=== PATIENT | male | born 1975 | race Hispanic/Latino ===

== ENCOUNTER → 2017-05-11 | Day surgery (SDC) | payer OTHER ==
[~2017-05-11] VITALS: Ht 182.9 cm; Wt 168.7 kg
[~2017-05-11] MED LIST: DAILY MULTIPLE1 EACH PO; MOBIC15 M1 PO; NAPROXEN500 MG PO; PANTOPRAZOLE SO40 M1 PO; PERCOCET 5-3251 EACH PO; RANITIDINE15 MG/M1 PO; TERBINAFINE HY250 MG PO; VITAMIN B-121000 MC3 PO; [UNRECOGNIZED DRUG - OTHER] PO
--- NOTE | 2017-05-11 13:55 | Operative Report ---
Operative/Inv Procedure Report Surgery Date: 05/11/17 Name of Procedure: Cystoscopy, L ureteroscopy, laser lithotripsy, basketing of stone fragments, insertion of L double J ureteral stent Pre-Operative Diagnosis: L renal caluculus Post-Operative Diagnosis: same Estimated Blood Loss: scant Surgeon/Face Boss: Arnulfo Castelan MD Anesthesia: laryngeal mask airway Drains: 28 cm, 6 fr L double J ureteral stent Specimens: L renal stone fragments, urine C&S Complications: none Condition: stable Operative Indication: L flank pain and L mid to upper pole calyceal stone Operative/Procedure Note Note: The patient was taken to the cystoscopy room identified. He is placed in supine position on the cystoscopy table. A timeout was executed appropriately with the patient awake. Gen. anesthesia was induced via LMA. He was then placed in dorsolithotomy position and prepped and draped in usual fashion for cystoscopy. Surgical pause was executed appropriately. Fluoroscopy images taken with a marker on the left side of the abdomen to confirm the correct side of surgery as well as a correct orientation of the fluoroscopy image. A 22 [place] cystoscope sheath was placed into the bladder under direct vision using the 30 lens. Anterior urethra was normal. Prostatic urethra was nonobstructing. Upon entering the bladder cystoscopy was performed. The bladder was essentially normal. The right and left ureteral orifices were normal in location and appearance. A guidewire was placed through the cystoscope into the left ureter and advanced up the level of the left kidney. The cystoscope was removed leaving the wire in place. Double-lumen dilating catheter was used to place a second wire. Over the second wire was placed a 45 cm ureteral access sheath. The safety wire remained in place at all times. The flexible ureteroscope was advanced through the ureteral access sheath. The stone was located in the mid to upper pole calyx. Using the 275 holmium laser fiber the stone was fragmented into multiple fragments. Using a spiral basket some of the fragments were removed. Some of them could not be basketed and removed. This was due to on some difficulty seeing the stones due to clot in the calyx with the stone resided. Attempts to remove the clot by flushing or grabbing with a basket were not really successful. It was determined that the procedure would be halted. Ureteroscope was removed as was the ureteral access sheath. The safety guidewire was left in place. Cystoscope was back loaded onto the guidewire. Open-ended catheter was placed over the wire which was removed. Some contrast was injected to outline the left renal collecting system. The guidewire was placed back through the open-ended catheter which was removed. Under visual fluoroscopic control a 28 cm 6 [place] left double-J ureteral stent was placed. A long suture was left attached the list on the stent exiting the urethra. Findings: 7-8 mm L upper pole calyceal stone Discharge Disposition: PACU
--- NOTE | 2017-05-13 08:53 | RADIOLOGY REPORT ---
EXAMINATION: XR ABDOMEN CLINICAL INDICATION: Left ureteroscopy with laser and stent. COMPARISON: CT scan of the abdomen and pelvis 02/02/2017. Abdominal x-ray 08/18/2011. TECHNIQUE: 9 intraprocedural views of the left abdomen were obtained during left ureteroscopy and placement of stent. FLUOROSCOPY TIME: 1 minute. FINDINGS: The images demonstrate placement of a left double-J ureteral stent over a guidewire. Retrograde pyelogram was obtained. IMPRESSION: 1. Multiple intraprocedural images of the left abdomen were obtained. 2. Please refer to surgical notes for further details of the procedure.
== END ==
LOC: STS 02:25
DX: N20.0 Calculus of kidney (principal); Z87.442 Personal history of urinary calculi; Z98.84 Bariatric surgery status; G47.33 Obstructive sleep apnea (adult) (pediatric); Z87.891 Personal history of nicotine dependence
CPT/HCPCS: 74018; 87086; C2617; J0131; J0690; J2250; J2405